=== PATIENT | female | born 1955 | race Caucasian/White ===

== ENCOUNTER → 2017-11-18 11:10 | Outpatient (CLI) | payer OTHER ==
[~2017-11-18] VITALS: Ht 162.6 cm; Wt 66.4 kg
--- NOTE | ~2017-11-18 | HEMODYNAMI ---
PATIENT:JUDIT NEWMAN MEDICAL RECORD: [id number] : 55 LOCATION:[facility] ADMISSION DATE: 11/18/17 Generatedon:11/18/201713:38 Patient name: JUDIT NEWMAN Patient #: [id number] SSN: D OB: 1955 Date of study: 11/18/2017 Page: Of Hemodynamic Procedure Report Patient Data Patient Demographics Procedure consent was obtained First Name: JUDIT Gender: Female Last Name: PATY : 1955 [facility] Initial: ISAMAR Age: 62 year(s) Patient #: [id number] Race: Unknown Additional ID: [id number] Contact details Address: [address] [place] [address] State: [place] City: [place] Zip code: [address] Past Medical History Allergies: No known allergies Admission Admission Data Admission Date: 11/18/2017 Admission Time: 11:10 Lab Results Lab Result Date: 11/18/2017 Lab Result Time: 12:05 Biochemistry Name Units Result Min Max BUN mg/dl 15 --(--*-)-- 7 18 Creatinine mg/dl 0.7 --(*---)-- 0.6 1.3 CBC Name Units Result Min Max Hematocrit % 43.2 --(*---)-- 42 54 Hemoglobin g/dl 14.7 --(-*--)-- 13.5 17.5 Procedure Procedure Types Cath Procedure Diagnostic Procedure C C w/Coronaries Procedure Description Procedure Date Procedure Date: 11/18/2017 Procedure Start Time: 13:20 Procedure End Time: 13:36 Procedure Staff Name Function Geoffrey Gallardo MD Performing Physician Sonny Bailon RN Nurse Wilber Wilson RT Monitor Jeffery Stuart RT Scrub Procedure Data Cath Procedure Fluoroscopy Diagnostic fluoroscopy Total fluoroscopy Time: 1.4 time: 1.4 min min Diagnostic fluoroscopy Total fluoroscopy dose: 230 dose: 230 mGy mGy Contrast Material Contrast Material Type Amount (ml) Isovue 300 70 Entry Location Entry Primary Successful Side Size Upsize Upsize Entry Closure Succes sful Closure Location (Fr) 1 (Fr) 2 (Fr) Remarks Device Remarks Femoral Right 6 Fr Exoseal artery Short Diagnostic catheters Device Type Used For End Catheter Placement MULTIPACK JL 4.0 5Fr Left Coronary catheter Angiography MULTIPACK 3DRC 5Fr Right Coronary catheter Angiography MULTIPACK Pigtail 5 Fr LV Angiography catheter Procedure Complications No complications Procedure Medications Medication Administration Route Dosage 0.9% NaCl I.V. 100 ml/hr Oxygen etCO2 Nasal cannula 2 l/min Heparin Flush Bag added to field 2 bags (1000units/500ml NS) Lidocaine 2% added to field 20 Versed I.V. 2 mg Fentanyl I.V. 100 mcg Versed I.V. 1 mg Hemodynamics Rest Heart Rate: 85 (bpm) Pressure Samples Time Site Value (mmHg) Purpose Heart Use Rate(bpm) 13:27 LV 131/-6,8 EDP 85 13:28 LV 142/-8,13 Snapshot 69 13:28 AO 138/69(100) Pullback 73 13:28 LV 146/4,1 Pullback 73 Gradients Valve Time Site 1 Site 2 Mean SEP/DFP Peak To Heart Use (mmHg) (sec/min) Peak Rate (mmHg) (bpm) Aortic 13:28 LV AO 12 13 8 73 146/4,1 138/69(100) Calculations Valve P-P Mean Valve Index Valve Source Name Gradient Area Flow (cm2) Aortic 8 12 8 12 Snapshots Pre Cath Intra NCS Post Cath Vital Signs Time Heart Resp SPO2 etCO2 NIBP (mmHg) Rhythm Pain Sedation Rate (ipm) (%) (mmHg) Status Level (bpm) 13:18:47 65 15 98 39.9 125/76(98) NSR 0 (11) 10(A) , No pain 13:23:30 66 15 96 39.9 125/74(100) NSR 0 (11) 10(A) , No pain 13:28:11 104 6 96 41.4 131/76(108) NSR 0 (11) 9(A) , No pain 13:32:51 73 12 96 41.4 124/72(98) NSR 0 (11) 10(A) , No pain Medications Time Medication Route Dose Verified Delivered Reason Notes Eff ectiveness by by 13:15:07 0.9% NaCl I.V. 100 Sonny Sonny Per ml/hr Adamaris Bailon physician RN RN 13:15:16 Oxygen etCO2 2 Sonny Sonny Per Nasal l/min Adamaris Bailon physician cannula RN RN 13:15:27 Heparin Flush added 2 Sonny Sonny used for Bag to bags Adamaris Bailon procedure (1000units/500ml field RN RN NS) 13:15:38 Lidocaine 2% added 20ml Sonny Sonny for local to vial Lorigan Lorigan anesthetic field RN RN 13:18:34 Versed I.V. 2 mg Sonny Sonny for Lorigan Lorigan sedation RN RN 13:18:41 Fentanyl I.V. 100 Sonny Sonny for mcg Lorigan Lorigan sedation RN RN 13:23:29 Versed I.V. 1 mg Sonny Sonny for Lorigan Lorigan sedation RN graduate fellow Log Time Note 12:45:55 Sonny Bailon RN sent for patient. Start room use. 12:49:03 Diagnostic Cath status Elective 12:49:09 Time tracking: Regular hours (M-F 7:00 - 5:00) 12:49:13 Plan of Care:Hemodynamics will remain stable., Cardiac rhythm will remain stable., Comfort level will be maintained., Respiratory function will remain adequate., Patient/ family verbilizes understanding of procedure., Procedure tolerated without complication., Recovers from procedure without complications.. 12:49:35 H&P Date Dictated: 10/21/2017 Within 30 days and on chart., H&P Addendum completed by physician on day of procedure. (MUST COMPLETE FOR ALL OUTPATIENTS). 12:51:02 Lab Result : BUN 15 mg/dl 12:51:02 Lab Result : Hemoglobin 14.7 g/dl 12:51:02 Lab Result : Creatinine 0.7 mg/dl 12:51:02 Lab Result : Hematocrit 43.2 % 12:51:06 Lab results completed and on chart. 13:00:50 Patient received from Pre/Post Procedure Room to CCL 1 Alert and oriented. Tansferred to table in Supine position. 13:00:51 Warm blankets applied, and lucy hugger turned on for patient comfort. 13:00:52 Correct patient and procedure confirmed by team. 13:00:53 Signed procedure consent form obtained from patient. 13:00:53 ECG and BP/O2 sat monitors applied to patient. 13:01:32 Pre-procedure instructions explained to patient. 13:01:33 Pre-op teaching completed and patient verbalized understanding. 13:01:34 Family in waiting room. 13:01:35 Patient NPO since Midnight. 13:15:07 0.9% NaCl 100 ml/hr I.V. was administered by Sonny Bailon RN; Per physician; 13:15:16 Oxygen 2 l/min etCO2 Nasal cannula was administered by Sonny Bailon RN; Per physician; 13:15:27 Heparin Flush Bag (1000units/500ml NS) 2 bags added to field was administered by Sonny Bailon RN; used for procedure; 13:15:38 Lidocaine 2% 20ml vial added to field was administered by Sonny Bailon RN; for local anesthetic; 13:15:42 Vital chart was started 13:16:04 Patient allergic to No known allergies 13:16:07 Is the patient allergic to Iodine/contrast media? No. 13:16:13 Is patient on blood thinner?No 13:16:15 Patient diabetic? Yes. 13:16:16 If diabetic: On Metformin? Yes 13:16:20 If on Metformin: Last Dose? 11/17/2017 13:16:22 ----Pre-sedation anethsthesia assessment.---- 13:16:25 Previous problem with sedation/anesthesia? No ? 13:16:59 Snore? No 13:17:00 Sleep apnea? No 13:17:02 Deviated septum? No 13:17:03 Opens mouth fully? Yes 13:17:05 Sticks out tongue? Yes 13:17:17 Airway obstruction? No ? 13:17:24 Dentures? No ? 13:17:27 Pre procedure: right dorsailis pedis pulse 1+ Palpable, but thready & weak; easily obliterated 13:17:30 Modified Dane's test Ulnar > 7 seconds. 13:17:33 Patient pain scale 0/10 ?. 13:17:40 IV patent on arrival in left antecubital with 0.9% NaCl at 10ml/hr. 13:17:45 Right groin area was prepped with chlora-prep and draped in sterile fashion 13:17:46 Alarms reviewed by R. N. 13:17:46 Sharps counted by scrub and verified by R.N. 13:17:47 Physician arrived 13:17:48 --------ALL STOP TIME OUT------ 13:17:48 Final Timeout: patient, procedure, and site verified with staff and physician. All members of the team are in agreement. 13:17:50 Right groin site verified by team. 13:17:53 Physical assessment completed. ASA score P 2 - A patient with mild systemic disease as per Geoffrey Gallardo MD. 13:17:58 Sedation plan: IV Moderate Sedation Medication:Versed, Fentanyl 13:18:19 Use device set Femoral Dx 13:18:21 ACIST Syringe (73399) opened to sterile field. 13:18:21 Bag Decanter (2002S) opened to sterile field. 13:18:22 Medline Cath Pack ([id number]) opened to sterile field. 13:18:22 DIAGNOSTIC WIRE .035 260cm J wire ([id number]) opened to sterile field. 13:18:24 ACIST Hand Control (67772) opened to sterile field. 13:18:24 ACIST Manifold (07023) opened to sterile field. 13:18:25 DIAGNOSTIC Multipack 5Fr catheter set ([id number]) opened to sterile field. 13:18:25 Tegaderm 4 x 4 (1626W) opened to sterile field. 13:18:29 SHEATH Prelude 5Fr 0.035 ([id number]) opened to sterile field. 13:18:32 Procedure started. 13:18:32 Full Disclosure recording started 13:18:34 Versed 2 mg I.V. was administered by Sonny Bailon RN; for sedation; 13:18:41 Fentanyl 100 mcg I.V. was administered by Sonny Bailon RN; for sedation; 13:20:00 Local anesthetic to right femoral artery with Lidocaine 2% by Geoffrey Gallardo MD.INITIAL ACCESS ONLY 13:21:03 A 6 Fr Short sheath was inserted into the Right Femoral artery 13:21:08 Zero performed for pressure channel P1 13:23:16 A MULTIPACK JL 4.0 5Fr catheter was advanced over the wire and used for Left Coronary Angiography. 13:23:29 Versed 1 mg I.V. was administered by Sonny Bailon RN; for sedation; 13:24:53 LCA angiography performed. 13:24:55 Catheter exchanged over wire. 13:25:17 A MULTIPACK 3DRC 5Fr catheter was advanced over the wire and used for Right Coronary Angiography. 13:26:46 RCA angiography performed. 13::48 Catheter exchanged over wire. 13:26:56 A MULTIPACK Pigtail 5 Fr catheter was advanced over the wire and used for LV Angiography. 13:27:02 LV angiography performed. 13:27:07 LV gram done using NICHOLS 13:28:20 EF : 60 % 13:29:20 Catheter removed. 13:30:30 Sheath removed intact; hemostasis achieved with Exoseal to the Right Femoral artery. 13:30:32 Procedure ended.(Physican Out) 13:30:43 Contrast amount:Isovue 300 70ml. 13:30:51 EXOSEAL 5Fr (EX500) opened to sterile field. 13:31:00 Fluoroscopy time 01.40 minutes. 13:31:08 Fluoroscopy dose: 230 mGy 13:31:08 Flurop Dose total: 230 13:31:10 Sharps counted by scrub and verified by R.N. 13:31:13 Insertion/operative site no bleeding no hematoma. 13:31:16 Post-op/insertion site Right Femoral artery dressed using a 4 x 4 and Tegaderm. 13:31:34 Post right femoral artery:stable 13:31:36 Post Procedure Pulses reassessed and unchanged 13:31:39 Post procedure: right dorsailis pedis pulse 1+ Palpable, but thready & weak; easily obliterated. 13:32:28 Post procedure rhythm: sinus rhythm 13:32:29 Post procedure instruction explained to patient.Patient verbalizes understanding. 13:32:32 Procedure and supply charges have been captured, reviewed, submitted and are correct. 13:33:00 Procedure Complication : No complications 13:33:06 Vital chart was stopped 13:33:08 See physician's report for complete and final results. 13:33:11 Report given to Pre/Post Procedure Room. 13:33:16 Patient transfered to Pre/Post Procedure Room with Stretcher. 13:36:56 Procedure ended. 13:36:56 Full Disclosure recording stopped 13:36:59 End room use (Document Last) Device Usage Item Name Manufacture Quantity Catalog Number Hospital Part Current M inimal Lot# / Charge Number Stock Stock Serial# Code ACIST Syringe Acist 1 72171 433002 258007 497624 2 0 (61752) [employer] Bag Decanter Microtek 1 2001S 665949 53955 262534 5 (2001S) Medical Inc. Medline Cath Cardinal 1 [id number] 371377 01242 604361 5 Pack Health ([id number]) DIAGNOSTIC WIRE [facility] [place] 1 725273 495734 527359 609624 3 0 .035 260cm J wire (275222) ACIST Hand Acist 1 95054 313422 254175 876320 5 Control (76853) [employer] ACIST Manifold Acist 1 64105 176861 092509 198182 5 (08482) [employer] DIAGNOSTIC Cardinal 1 BE8167 461155 83021 923620 3 0 Multipack 5Fr Health catheter set ([id number]) Tegaderm 4 x 4 3M 1 1626W 859331 813699 918939 5 (1626W) SHEATH Prelude Merit 1 [id number] 786500 402346 498153 5 5Fr 0.035 Medical ([id number]) MULTIPACK JL Cardinal 1 246295 5 4.0 5Fr Health catheter MULTIPACK 3DRC Cardinal 1 833919 5 5Fr catheter Health MULTIPACK Cardinal 1 [id number] 5 Pigtail 5 Fr Health catheter EXOSEAL 5Fr Cardinal 1 EX500 660497 246466 240355 1 0 (EX500) Health Signature Audit [place] Stage Time Signature Unsigned Intra-Procedure 11/18/2017 Jeffery Stuart RT(R) 1:38:42 PM Signatures Monitor : Wilber Wilson RT Signature : Date : Time : [facility] [address] [place] [address]
[~2017-11-18 11:10] MED LIST: EFFEXOR37.5 MG PO; FARXIGA10 MG PO; GLUCOPHAGE1000 MG PO; HCTZ25 MG PO; IBUPROFEN800 MG PO; MULTIPLE VITAMI1 TA1 PO; NIASPAN500 MG PO; OMEPRAZOLE20 M1 PO; XANAX0.5 MG PO
[2017-11-18 12:07] VITALS: BP 128/77; Ht 162.6 cm; Wt 66.4 kg
[2017-11-18 12:36] LABS: BASOPHILS 0.7 % (0-2); EOSINOPHILS 4.1 % (0-7); HEMATOCRIT 43.2 % (36.0-48.0); HEMOGLOBIN 14.7 g/dL (12-16); IMMATURE GRANULOCYTES 0.2 % (0-5); MCH 28.2 pg (26.0-34.0); MCV 82.9 fL (80.0-100.0); MEAN PLATELET VOLUME 11.3 fL (7.4-10.4); MONOCYTES 10.3 % (2-11); NEUTROPHILS 52.7 % (40-80); PLATELET COUNT 267 10x3/uL (130-400); RBC 5.21 10x6/uL (4.00-5.40); RDW 13.3 % (11.5-14.5); WBC 6.1 10x3/uL (4.8-10.8)
[2017-11-18 12:39] LABS: CALC OSMOLALITY 279 mosm/kg (275-300); CALCIUM 8.9 mg/dL (8.5-10.1); CHLORIDE - SERUM 101 mmol/L (98-107); CREATININE - SERUM 0.7 mg/dL (0.6-1.3); GLUCOSE 109 mg/dL (74-106); POTASSIUM - SERUM 3.5 mmol/L (3.5-5.1); SODIUM 139 mmol/L (136-145); UREA NITROGEN 15 mg/dL (7-18); eGFR NON AFRICAN AMERICAN 90 mL/min (90-120)
== END | disposition home or self-care (01) ==
LOC: D.CATH 11:10
PROVIDERS: Internal Medicine Cardiovascular Disease
DX: R94.39 Abnormal result of other cardiovascular function study (principal); Z01.812 Encounter for preprocedural laboratory examination